=== PATIENT | female | born 1965 | race Caucasian/White ===

== ENCOUNTER 2021-11-08 12:55 | Inpatient (IN) | payer MEDICARE, BC ==
[~2021-11-08] VITALS: Ht 175.3 cm; Wt 75.6 kg
[2021-11-08] MEDS ORDERED: mag hydrox/Alum hydrox/simeth 30ml oral suspension PO PRN (17:05)
[2021-11-08] MEDS ORDERED: acetaminophen 325mg tablet PO PRN ×2 (17:05)
[2021-11-08] MEDS ORDERED: loperamide 2mg capsule PO PRN (17:05)
[2021-11-08] MEDS ORDERED: magnesium hydroxide 30ml (MOM) UD suspension PO PRN (17:05)
[2021-11-08] MEDS ORDERED: NICOTINE POLACRILEX 2 MG LOZENGE BC PRN (17:05)
[2021-11-08 17:28] VITALS: BP 130/89
[2021-11-08] MEDS ORDERED: BUPR300T86 PO (17:34)
--- NOTE | 2021-11-08 17:55 | NUR ---
Pt is a 56 y/o female admitted on a 5150 for DTS from [facility]. Arrived at [facility] at 1635, escorted by security and NA in a wheelchair. She reportedly ingested approximately 12,000 mg Ibuprofen and 4250 mg of Topamax (husbands medication). She was asymptomatic except for some confusion. She reports that she has had previous suicide attempts via overdose and has a history of psychiatric hospitalizations. Skin and safety check completed and oriented to unit. Belongings inventoried. Pt advised of 5150 status Covid: negative Tox screen positive THC
[2021-11-08 20:00] VITALS: BP 113/78
[2021-11-08] MEDS: BUPROPRION 150 MG PO SCH (20:46)
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
[2021-11-09] MEDS ORDERED: nicotine 21mg patch - 24 hr TD SCH (08:00)
[2021-11-09 08:02] LABS: CHOL/HDL RATIO 4.2 (0.00-4.99); CHOLESTEROL 176 MG/DL (0-200); HDL CHOLESTEROL 42 MG/DL (35-60); LDL CHOLESTEROL 100 MG/DL (50-100); TRIGLYCERIDES 94 MG/DL (20-135)
[2021-11-09] MEDS: BUPROPRION 150 MG PO SCH ×2 (08:24→20:39)
[2021-11-09 08:30] LABS: HEMOGLOBIN A1C 5.2 % (4.5-6.2)
[2021-11-09 08:45] VITALS: BP 104/60
--- NOTE | 2021-11-09 17:12 | NUR ---
Nursing Progress Note: Problem: 56 year old female admitted to [facility] for Danger to Self on a 5150 for Attempted Overdose. Patient was transferred from [facility] yesterday 11/08. Intervention: Patient Assessment and 1:1 Patient Interview completed today. Provider continues to provide patient with a safe and therapeutic environment, clear communication, active listening and positive encouragement. Response: Patient received while at breakfast in the Community Room. Introduced self to the patient, and she replied I told them I am on a Gluten Diet yesterday when I was admitted, but I still got a Regular Diet. Patient got up from the table without eating anything, and started to leave the Community Room. I informed the patient that I will interview her now, and send the information to Dietary. Patient informed me of the food items of foods she can eat on a Gluten Free Diet, and the list was faxed to Dietary. Patient took medications without hesitation. Patient returned to her room and laid down for a nap, then requested that I call her , Rodrigo at [phone]. Patient requested that I call her and ask him to bring in her phone so that she can retrieve specific phone numbers off her phone, her purse, and the keys to her car. Informed the patient that I would call her and request the above items, then we would collect these items from her to return to the safe until her departure from [facility]. TC placed to patients , who stated he would bring in the items she requested sometime today. Informed the patient that her stated it might be a bit longer to bring in her car keys to her, as he would need a ride home from the hospital. Informed the patient her would bring in her items, and asked her to respond to her whether or not she would need her personal car here. Patient received her gluten free lunch with items requested, and stated It was good. Patient participated in snacks at 1100 & 1500. Patient took medications without hesitation. Patient disclosed I only started on my medication today, but Im feeling better just being out of the home. Patient informed that she would be filing for a divorce, because I lost a lot of money, a lot of time with my family, it impacted my job and thats the reason I no longer want to be living at this time. Informed patient the most important part is that she focus on improvement, attend Group Meetings, and if/when she would like to talk to her Churner to let one of us know and we will get them for her, and she can speak privately to them. Plan: Patient continues to require crisis interruption and stabilization with medication management and monitoring in a safe & therapeutic environment.
[2021-11-09 19:59] VITALS: BP 108/69
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
[2021-11-10] MEDS: BUPROPRION 150 MG PO SCH (07:40)
[2021-11-10 08:00] VITALS: BP 116/67
[2021-11-10] MEDS ORDERED: hydrOXYzine 25 MG tablet PO ONE (08:55)
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
[2021-11-10] MEDS ORDERED: hydrOXYzine 25 MG tablet PO PRN (17:10)
[2021-11-10 19:40] VITALS: BP 111/89
--- NOTE | 2021-11-11 02:23 | NUR ---
Nursing Progress Note: Problem: 56 year old female admitted to [facility] for Danger to Self on a 5150 for Attempted Overdose. Patient was transferred from [facility], 11/08. Intervention: Patient Assessment and 1:1 Patient Interview completed today. Provided a safe and therapeutic environment, clear communication, active listening and positive encouragement. Q15 min safety checks. Response: Pt up on unit made phone calls. Unhappy with new roommate so moved to a different room. Pt cooperative with care took all medications and went to sleep. Plan: Patient continues to require crisis interruption and stabilization with medication management and monitoring in a safe & therapeutic environment.
[2021-11-11 08:00] VITALS: BP 116/89
[2021-11-11] MEDS: buPROPion SR 150mg tablet PO SCH ×2 (08:28→13:42)
--- NOTE | 2021-11-11 17:13 | NUR ---
Nursing Progress Note: Problem: Patient was transferred to [facility] from [facility] on 11/08/21. Patient is on a 5150 for Danger to Self. Intervention: Patient Assessment and 1:1 Patient Interview completed today. Provider continues to provide nursing care to the patient in a safe and therapeutic environment with clear communication, active listening and positive encouragement. Patient took all medications without hesitancy. Patient reports My head is becoming a lot clearer now from the medications I am taking, and no stress here in this place. Patient had multiple complaints related to staff members, and her gluten-free diet. Looked at patients breakfast tray this morning while she was eating. The meal included a lot of fresh strawberries and pineapple, 2 hard-boiled eggs, one piece of bread, as well as soy milk. Dr. Salinas asked about the patients diet slip stating Allergic to Gluten and Lactose. Reviewed with the patient that we cannot enter the gluten diet into our computers, and so they listed as Allergies the Gluten and Lactose. Patient also informed that she spoke to her last evening. We decided to calmly go through this divorce without any one upset or taking things that do not belong to the other. Response: Patients issues with night nurse staffing was resolved. Patient appreciated being moved out of Room 331B to 327A. Patient stated she slept much better after being relocated. Encouraged patient to communicate any concerns she might have to her Nurse or the Charge Nurse. Encouraged patient to speak with the Repairer [employer] tomorrow when they return from their holiday weekend. Plan: Patient is currently on a [address] scheduled for today at 11/11/21 at 1635. Patient continues to require crisis interruption and stabilization with medication management and monitoring in a safe & therapeutic environment.
[2021-11-11 19:30] VITALS: BP 122/75
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
[2021-11-12] MEDS: buPROPion SR 150mg tablet PO SCH ×2 (07:17→14:56)
--- NOTE | 2021-11-12 07:30 | NUR ---
Initial: Pt admitted w/ suicidal ideations w/ overdose per EMR. Currently on Regular/gluten free diet w/ 100% intake of meals meeting needs at this time. [facility] 11/10 w/ PRN bowel care available. No nutrition intervention implemented at this time, will continue to monitor. Recs: 1.Continue Regular diet as tolerated 2. Bowel care PRN 3. Weekly wts Addendum: 11/12/21 at [address] Amended: Links added.
[2021-11-12 08:00] VITALS: BP 110/87
--- NOTE | 2021-11-12 11:19 | NUR ---
Nursing Progress Note: Jess Problem: Patient reportedly ingested approximately 12,000 mg Ibuprofen and 4250 mg of Topamax (husbands medication). She was asymptomatic except for some confusion. She reports that she has had previous suicide attempts via overdose and has a history of psychiatric hospitalizations. Intervention: Medication administered as ordered. Provided with a safe and therapeutic environment, clear communication, active listening and positive encouragement. Response: Patient spends a lot of time on the phone. Denies SI at this time. States, I was never really suicidal. Im just scared. Patient describes her as having epilepsy which has made him more angry. Patient states this is her 3rd suicide attempt which she attributes to being scared of her . States she is scared to go home and is trying to decide where to go from here. She is tearful when talking about from her of 30 years but she states, Its time. Medication administered as ordered. Patient states she thinks it makes her dizzy. Also states that she does not need medications when she is well and only takes them when she is down. Plan: Patient continues to require crisis interruption and stabilization with medication management and monitoring in a safe and therapeutic environment.
[2021-11-12 19:51] VITALS: BP 119/84
[2021-11-12] MEDS: hydrOXYzine 25 MG tablet PO PRN (23:15)
--- NOTE | 2021-11-12 23:18 | NUR ---
Nursing Progress Note: Problem: Patient reportedly ingested approximately 12,000 mg Ibuprofen and 4250 mg of Topamax (husbands medication). She was asymptomatic except for some confusion. She reports that she has had previous suicide attempts via overdose and has a history of psychiatric hospitalizations. Intervention: Medication administered as ordered. Provided with a safe and therapeutic environment, clear communication, active listening and positive encouragement. Response: Patient in rec room at change of shift. Pt denies s/i, states she is here for taking an over dose. Pt states while she has been working 6 days a week he was cheating on her and she wants to leave him. She is tearful when talking about from her . Pt had evening snack and socialized with peers and went to bed. Pt woke up c/o noise in her room. States she cant sleep and is tearful. Pt was given earplugs and prn ativan for anxiety. Pt went back to bed. Plan: Patient continues to require crisis interruption and stabilization with medication management and monitoring in a safe and therapeutic environment.
[2021-11-13] MEDS: buPROPion SR 150mg tablet PO SCH ×2 (07:16→13:05)
[2021-11-13 07:20] VITALS: BP 109/70
[2021-11-13 09:03] LABS: UA COLLECTION TYPE NON-SPECIFIED
[2021-11-13 09:05] LABS: CLARITY,URINE SLIGHTLY CLOUDY (Clear); COLOR,URINE YELLOW (Yellow); GLUCOSE, URINE NEGATIVE (Neg); KETONES,URINE NEGATIVE (Neg); LEUKOCYTE ESTERASE ,URINE SMALL (Neg); NITRITES, URINE POSITIVE (Neg); OCCULT BLOOD,URINE TRACE-INTACT (Neg); PROTEIN,URINE NEGATIVE (Neg); UROBILINOGEN,URINE 0.2 E.U/dL (0.2-1.0)
[2021-11-13 09:19] LABS: BACTERIA,URINE 2+ /HPF (Neg); RBC,URINE 0-2 /HPF (0-2)
[2021-11-13 09:20] LABS: SQUAMOUS EPITHELIAL CELL,UR FEW /LPF (FEW)
--- NOTE | 2021-11-13 13:47 | NUR ---
Pt. attended group today. The group today was about Anxiety, they were asked to identify the natural and silent triggers they have experienced. The second half of group was about what coping skills we can utilize when we are anxious. Pt. engaged appropriately in the group today. She was alert and oriented X 4. Her thought content and thought process were WNL. She easily shared about what her symptoms of anxiety are. She showed insight into her mental illness. She was very engaging with her peers, listening and attuning to what they shared and encouraging others. She appeared to enjoy socializing with the group members. She seemed to have already built some connections with others in the group. Her mood was good with a full range of affect. Her demeanor was calm, compliant and pleasant to work with. Suyapa Toro LCSW
--- NOTE | 2021-11-13 16:39 | NUR ---
Nursing Progress Note: Jess Problem: Patient reportedly ingested approximately 12,000 mg Ibuprofen and 4250 mg of Topamax (husbands medication). She was asymptomatic except for some confusion. She reports that she has had previous suicide attempts via overdose and has a history of psychiatric hospitalizations. Intervention: Medication administered as ordered. Provided with a safe and therapeutic environment, clear communication, active listening and positive encouragement. Response: Medication given as ordered with no ASE observed. Patient is tearful during assessment. Denies any SI at this time. States, I was never really suicidal. I was in fear. Patient appears paranoid stating that The system did this to her also stating that the system uses family to get to you. Patient spends time socializing on the unit and interacts appropriately with staff and peers. Patient talks on the phone several times. Patient states she is afraid to return home to her and is not sure where she is going to live upon discharge. States she may go to live with her sister in [place]. Plan: Patient continues to require crisis interruption and stabilization with medication management and monitoring in a safe and therapeutic environment.
[2021-11-13 19:41] VITALS: BP 107/73
[2021-11-13] MEDS: ciprofloxacin 250mg tablet PO SCH (19:42)
--- NOTE | 2021-11-13 20:54 | NUR ---
Nursing Progress Note: Jess Problem: Patient reportedly ingested approximately 12,000 mg Ibuprofen and 4250 mg of Topamax (husbands medication). She was asymptomatic except for some confusion. She reports that she has had previous suicide attempts via overdose and has a history of psychiatric hospitalizations. Intervention: Medication administered as ordered. Provided with a safe and therapeutic environment, clear communication, active listening and positive encouragement. Response: Pt is in bed at change of shift resting. Pt smiles and appears to have a brightened affect from yesterday. Pt is glad to be starting Cipro for UTI she states. Pt denies s/i. Pt if future oriented talks about possibility of moving in w/her sister, fearful of and doesnt want to return home to him. Plan: Patient continues to require crisis interruption and stabilization with medication management and monitoring in a safe and therapeutic environment.
[2021-11-14 07:39] VITALS: BP 116/80
[2021-11-14] MEDS: buPROPion SR 150mg tablet PO SCH ×2 (08:05→13:11)
[2021-11-14] MEDS: ciprofloxacin 250mg tablet PO SCH ×2 (08:05→20:07)
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
[2021-11-14] MEDS: hydrOXYzine 25 MG tablet PO PRN (19:03)
--- NOTE | 2021-11-15 05:00 | NUR ---
Nursing Progress Note: Jess Problem: Patient reportedly ingested approximately 12,000 mg Ibuprofen and 4250 mg of Topamax (husbands medication). She was asymptomatic except for some confusion. She reports that she has had previous suicide attempts via overdose and has a history of psychiatric hospitalizations. Intervention: Medication administered as ordered. Provided with a safe and therapeutic environment, clear communication, active listening and positive encouragement. Response: Patient was found sitting in community room at beginning of shift. Patient stayed in community room socializing and coloring the majority of the shift. Patient participated in snack time and was observed talking on the phone to family members while pacing the all. Patient came to nurse and asked if she could have medications given early due to her wanting to go to sleep before her roommate since she kept her up all last night. Patient took medications without issue along with requested Atrax for anxiety. Plan: Patient continues to require crisis interruption and stabilization with medication management and monitoring in a safe and therapeutic environment.
[2021-11-15 08:00] VITALS: BP 127/88
[2021-11-15] MEDS: buPROPion SR 150mg tablet PO SCH ×2 (09:00→13:39)
[2021-11-15] MEDS: ciprofloxacin 250mg tablet PO SCH ×2 (09:00→20:32)
[2021-11-15] MEDS: duloxetine 30mg CAPSULE.DR PO SCH (09:19)
[2021-11-15] MEDS: hydrOXYzine 25 MG tablet PO PRN (13:42)
--- NOTE | 2021-11-15 13:43 | NUR ---
PRNs Administered: Pt was on the telephone and requested a PRN anxiolytic, Atarax 50mg was administered. Interventions Offered: Pt. was provided a quiet environment, free from stimulation. Response to Medication: Pt. accepted medication and thanked this medical technical writer, will continue to monitor closely.
--- NOTE | 2021-11-15 14:48 | NUR ---
Nursing Progress Note: Problem : Patient reportedly ingested approximately 12,000 mg Ibuprofen and 4250 mg of Topamax (husbands medication). She was asymptomatic except for some confusion. She reports that she has had previous suicide attempts via overdose and has a history of psychiatric hospitalizations. This shift the pt. reports ongoing depression and anxiety, but denies any S/I. Interventions : Introduced self and established rapport, maintained a safe and supportive environment, ensured contract for safety, provided active listening and positive encouragement, monitored behaviors and need for intervention, and maintained Q 15min safety checks. Response : Received pt. sleeping in bed at the beginning of the shift, she awoke and attended breakfast in the Group Room. This blurb writer greeted pt. and established rapport. Pt. presents as cooperative, dysphoric, and anxious. She states tearfully, "I'm going through a divorce, and it's an emotional roller coaster." Pt. reports ongoing depression, but denies any S/I. She appears to be possibly minimizing, and states, "I never felt suicidal in the first place, it was just fear. My has seizures and I don't think he wanted me to leave because he needs help." However, pt. does report she has has plans for her future and plans to take classes and pursue her interests. Pt. remained up throughout the day and was observed to be appropriately interacting with others. Plan : Per Dr. Salinas, pt. continues to have significant depressive s/s and requires medication adjustments and a safe and supportive environment.
[2021-11-15 19:00] VITALS: BP 138/83
--- NOTE | 2021-11-16 04:52 | NUR ---
Nursing Progress Note: Problem : Patient reportedly ingested approximately 12,000 mg Ibuprofen and 4250 mg of Topamax (husbands medication). She was asymptomatic except for some confusion. She reports that she has had previous suicide attempts via overdose and has a history of psychiatric hospitalizations. Interventions : Introduced self and established rapport, maintained a safe and supportive environment, ensured contract for safety, provided active listening and positive encouragement, monitored behaviors and need for intervention, and maintained Q 15min safety checks. Response : Patient was received pacing hallways talking on the phone. Patient later was found sitting in community room socializing with other patients. Patient stated that she was feeling off today, patient had a lot on her mind and some things she feels she really needs to work out before she leaves here. Patient participated in snack and took night medications before going to bed. . Plan : Per Dr. Salinas, pt. continues to have significant depressive s/s and requires medication adjustments and a safe and supportive environment.
[2021-11-16] MEDS: buPROPion SR 150mg tablet PO SCH ×2 (07:36→14:30)
[2021-11-16] MEDS: duloxetine 30mg CAPSULE.DR PO SCH (07:36)
[2021-11-16] MEDS: ciprofloxacin 250mg tablet PO SCH (08:00)
[2021-11-16 08:28] VITALS: BP 127/76
[2021-11-16 13:12] LABS: BASOPHILS # (AUTO) 0.1 X10'3 (0-0.2); BASOPHILS % (AUTO) 0.8 % (0-1); EOSINOPHILS # (AUTO) 0.1 X10'3 (0-0.9); HEMATOCRIT 41.5 % (35.0-45.0); HEMOGLOBIN 13.9 g/dl (12.0-16.0); LYMPHOCYTES # (AUTO) 1.5 X10'3 (1.1-4.8); LYMPHOCYTES % (AUTO) 17.7 % (21-51); MEAN CORPUSCULAR HEMOGLOBIN 30.5 PG (27.0-31.0); MEAN CORPUSCULAR HGB CONC 33.6 g/dL (33.0-36.5); MEAN CORPUSCULAR VOLUME 90.9 FL (78-98); MEAN PLATELET VOLUME 8.6 FL (7.4-10.4); MONOCYTES # (AUTO) 0.5 X10'3 (0-0.9); MONOCYTES % (AUTO) 6.3 % (2-12); NEUTROPHILS # (AUTO) 6.4 X10'3 (1.8-7.7); NEUTROPHILS % (AUTO) 74.2 % (42-75); PLATELET COUNT 303 X10'3 (140-440); RED BLOOD COUNT 4.56 X10'6 (4.20-5.60); RED CELL DISTRIBUTION WIDTH 14.1 % (11.5-14.5); WHITE BLOOD COUNT 8.6 X10'3 (4.5-11.0)
[2021-11-16 13:14] LABS: ALANINE AMINOTRANSFERASE 27 U/L (12-78); ALBUMIN 4.1 G/DL (3.4-5.0); ALKALINE PHOSPHATASE 85 IU/L (46-116); ANION GAP 8 (8-16); ASPARTATE AMINO TRANSFERASE 18 U/L (10-37); BILIRUBIN,TOTAL 0.3 MG/DL (0.1-1.0); BLOOD UREA NITROGEN 9 MG/DL (7-18); BUN/CREATININE RATIO 10.1 (6.6-38.0); CALCIUM 9.3 MG/DL (8.5-10.1); CHLORIDE 103 MMOL/L (99-107); CREATININE 0.89 MG/DL (0.40-0.90); GLUCOSE 93 MG/DL (70-104); MAGNESIUM 1.9 MG/DL (1.5-2.4); POTASSIUM 3.6 MMOL/L (3.5-5.1); SODIUM 140 MMOL/L (135-145); TOTAL PROTEIN 8.2 G/DL (6.4-8.2); eGFR 65 ML/MIN
--- NOTE | 2021-11-16 17:04 | NUR ---
Nursing Progress Note: Problem: Patient admitted on 11/09/21 after she ingested approximately 12,000 mg Ibuprofen and 4250 mg of Topamax (husbands medication). She was asymptomatic except for some confusion. She reports that she has had previous suicide attempts via overdose and has a history of psychiatric hospitalizations. Interventions: Patient assessment and 1:1 Patient Interview completed. Patient asked, Do you mind if I ask you if you are Party or Constitution Party? Informed the patient I was not willing to disclose to her the constitution party that I am affiliated with. Patient continued on by saying Well, I can tell that this hospital, and Dr. Salinas are all Democrats, because they hang on to their money, and wont spend it on any of us patients. Asked patient what she meant, and she informed If they were [employer] Party, they would have paid for my ticket to [place] where my sister is, but with the way they are hanging onto their money, and telling me I can only go to a place in [facility]. Patient took all ordered medications without hesitation. No Group Meeting held today. Patient resting in bed after lunch. Patient also spent quite a bit of time talking to someone on the phone. Response: Patient is extremely paranoid about her medications, her physician and staff members who are caring for her each day. Patient stated I just want to walk away from this mess. Reinforced to the patient that each one of us working here in this department are trying to help her clear her mentation, as well improve her depression. Dr. Salinas is attempting to adjust your medications so that you receive the optimum improvement overall in helping with your depression, as well as with any other issues that you have spoken to him about since your admission. Patient also reports that her and her will be Sharing the same litigation attorney associate to file for our divorce. Plan: Patient continues to require crisis interruption and stabilization with medication management and monitoring in a safe and therapeutic environment.
[2021-11-16 20:00] VITALS: BP 141/94
--- NOTE | 2021-11-17 03:25 | NUR ---
Nursing Progress Note: Problem : Patient reportedly ingested approximately 12,000 mg Ibuprofen and 4250 mg of Topamax (husbands medication). She was asymptomatic except for some confusion. She reports that she has had previous suicide attempts via overdose and has a history of psychiatric hospitalizations. Interventions : maintained a safe and supportive environment, ensured contract for safety, provided active listening and positive encouragement, monitored behaviors and need for intervention, and maintained Q 15min safety checks. Response : Patient was visible on the unit, appropriately interacting with staff and peers. PT expresses concern that she feels the antibiotic she was being given was not actually meant for her, but was confused with another patient. Pt was reassured that this was not the case, and reminded that she was on antibiotics, which ended today, for a UTI. PT verbalized understanding. Pt has no scheduled HS medications. She eats snack and goes to bed without issue. Plan : Per Dr. Salinas, pt. continues to have significant depressive s/s and requires medication adjustments and a safe and supportive environment.
[2021-11-17 07:14] VITALS: BP 126/74
[2021-11-17] MEDS: duloxetine 30mg CAPSULE.DR PO SCH (07:46)
[2021-11-17] MEDS: buPROPion SR 150mg tablet PO SCH ×2 (07:46→13:20)
--- NOTE | 2021-11-17 17:33 | NUR ---
Nursing Progress Note: Problem: Patient admitted on 11/09/21 after she ingested approximately 12,000 mg Ibuprofen and 4250 mg of Topamax (husbands medication). She was asymptomatic except for some confusion. She reports that she has had previous suicide attempts via overdose and has a history of psychiatric hospitalizations. Interventions: Patient assessment and 1:1 Patient Interview completed. Administered medications and spoke to the patient regarding any concerns. Patient has eaten her meals in the Community Room and has participated in snack times. Patient appears bored at times, so I encouraged some activities that included the coloring of large print pictures in the Community Room, watching TV or visiting with peers. Patient has been reading a book today in the Community Room and her room. Response: Patient is extremely paranoid about where she will be going when she leaves here, her family connections, and peers in the facility. Patient has continued to make statements again asking if particular staff members are Constitution Party or Republican. Patient has self-isolated part of the day in her room. Plan: Patient continues to require crisis interruption and stabilization with medication management and monitoring in a safe and therapeutic environment.
[2021-11-17] MEDS: hydrOXYzine 25 MG tablet PO PRN (20:26)
[2021-11-17 21:07] VITALS: BP 127/81
--- NOTE | 2021-11-18 02:17 | NUR ---
Nursing Progress Note: Problem : Patient reportedly ingested approximately 12,000 mg Ibuprofen and 4250 mg of Topamax (husbands medication). She was asymptomatic except for some confusion. She reports that she has had previous suicide attempts via overdose and has a history of psychiatric hospitalizations. Interventions : Maintained a safe and supportive environment, ensured contract for safety, provided active listening and positive encouragement, monitored behaviors and need for intervention, and maintained Q 15min safety checks. Response : Patient seen at bedside for 1:1. She reports that she's making progress. "I'm close to discharging, but waiting to see if my sister will have me. I can't go back home." Patient then states that she believes the Wellbutrin she is taking makes her feel a little wired and hard to sleep. Patient wanted to make sure she could get some of "those green pills (Atarax) to help her sleep. Patient went to bed soon after receiving them. Patient has no scheduled medications. Plan : Per Dr. Salinas, pt. continues to have significant depressive s/s and requires medication adjustments and a safe and supportive environment.
[2021-11-18] MEDS: buPROPion SR 150mg tablet PO SCH ×2 (07:39→13:13)
[2021-11-18] MEDS: duloxetine 30mg CAPSULE.DR PO SCH (07:39)
[2021-11-18 08:00] VITALS: BP 130/90
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
--- NOTE | 2021-11-18 09:42 | NUR ---
Pt. attended group today. Todays group was about the difference between Growth Mindset vs. Fixed Mindset. We learned about the differences and then discussed what aspect of developing a growth mindset they wanted to work on. Pt. engaged well in the group. She was able to report that she believes she has a growth mindset. She left half way through the group reporting that she was very tired and needed to lay down. Her mood was down with a restricted affect. Her thought content and thought process were WNL. She was alert and oriented X 4. She seems to feel good about her options for discharge and for leaving her . Suyapa Toro, REVIEW RN
--- NOTE | 2021-11-18 14:52 | NUR ---
DCp Presenting Issues: Pt's ready fro d/c and has been engaging in [facility] activities trying to establish a d/c destination for herself. Pt was to contact [facility] to participate in a screening to see if she meets [facility] criteria for services. Interventions: Clinician met w/pt and f/u on her contact w/[facility]; pt reports that they recommends that pt take a cab to [facility] and complete paperwork to determine her eligibility, pt does not want to go there and then be stuck there if she does not meet criteria. Pt asked to access her cell phone to get friend's contact info and see if her friend will be able to provide prison for a nite and take her to the [facility] on Thursday morning. Pt's changed her mind about going to [place], she wants to go to [place] and can purchase her own ticket, will do so tomorrow morning. If pt's fried cannot provide transport to airport, pt wants to d/c from hospital at 2AM Thursday and will need cab/uber to [facility]. Plan: Pt to d/c sometime this week. Kendra Chapa LCSw Addendum: 11/18/21 at 1500 by Kendra Chapa SS Amended: Links added.
--- NOTE | 2021-11-18 17:45 | NUR ---
Nursing Progress Note: Problem: Patient admitted on 11/09/21 after she ingested approximately 12,000 mg Ibuprofen and 4250 mg of Topamax (husbands medication). She was asymptomatic except for some confusion. She reports that she has had previous suicide attempts via overdose and has a history of psychiatric hospitalizations. Interventions: Patient assessment and 1:1 Patient Interview completed. Patient took her morning medications. Patient was up early and ambulating in the hallway. Patient showered this morning. Patient requested to speak with ELHAM Gardner. Kendra arrived bedside to speak with this patient about some legal changes. Response: Patient took her morning medications without hesitation. Patient ate both meals in the Community Room, and participated in the snack session. Patient showered and walked in the hallway throughout the day. Patient participated in Group and then after lunch laid down and was reading a book. Plan: Patient should be discharged tomorrow and will be picked up by a friend, Kailey, who will take her to the [place] [facility] to board a plan. Please follow up on Tonia hallman tonight. Patient continues to require crisis interruption and stabilization with medication management and monitoring in a s
[2021-11-18] MEDS: hydrOXYzine 25 MG tablet PO PRN (18:55)
[2021-11-18 20:00] VITALS: BP 123/84
--- NOTE | 2021-11-19 00:07 | NUR ---
Nursing Progress Note: Problem : Patient reportedly ingested approximately 12,000 mg Ibuprofen and 4250 mg of Topamax (husbands medication). She was asymptomatic except for some confusion. She reports that she has had previous suicide attempts via overdose and has a history of psychiatric hospitalizations. Interventions : Maintained a safe and supportive environment, ensured contract for safety, provided active listening and positive encouragement, monitored behaviors and need for intervention, and maintained Q 15min safety checks. Response : Patient was sitting in the group room. 1:1 happened there. She reports that she is planning on going to [place]. Patient needs help to secure her belongings from her house and her car. She needs her daughters help because she fears going back to her house. Her discharge is imminent, but she needs to firm up her plans. Patient worries that if this doesn't happen soon, she could have a relapse. Patient requested Atarax for anxiety and sleep, which was effective aeb her asleep. Plan : Per Dr. Salinas, pt. continues to have significant depressive s/s and requires medication adjustments and a safe and supportive environment.
[2021-11-19] MEDS: buPROPion SR 150mg tablet PO SCH (07:31)
[2021-11-19] MEDS: duloxetine 30mg CAPSULE.DR PO SCH (07:31)
[2021-11-19 08:00] VITALS: BP 131/75
[2021-11-19] MEDS ORDERED: DULO30CA52 PO (09:32)
[2021-11-19] MEDS ORDERED: BUPR-72 PO (09:32)
[2021-11-19] MEDS ORDERED: HYDR-3686 PO (09:32)
--- NOTE | 2021-11-19 11:05 | NUR ---
DISCHARGE NOTE PT PICKED UP BY A FRIEND THAT WILL DRIVE HER TO [place] SO SHE CAN FLY TO FAMILY MEMBERS IN [place]. PT DECLINED SMOKING CESSATION REFERRAL OR MEDICATIONS. PT'S BELONGINGS INVENTORIED, SIGNED AND BELONGINGS RETURNED TO HER. PT ESCORTED OUT BY [employer]TAIN[employer].
== END 2021-11-19 11:05 | disposition home or self-care (01) | DRG 885 ==
LOC: ADULT MH 12:55 → UNDOADMIN 12:55 → ADULT MH 11-12 12:05
PROVIDERS: ADMIT Psychiatry & Neurology Psychiatry; ATTEND Psychiatry & Neurology Psychiatry
DX: F33.2 Major depressive disorder, recurrent severe without psychotic features (principal); T42.6X2A Poisoning by other antiepileptic and sedative-hypnotic drugs, intentional self-harm, initial encounter; R45.851 Suicidal ideations; T39.312A Poisoning by propionic acid derivatives, intentional self-harm, initial encounter; F17.210 Nicotine dependence, cigarettes, uncomplicated; K90.0 Celiac disease; F12.10 Cannabis abuse, uncomplicated; R06.02 Shortness of breath; F41.9 Anxiety disorder, unspecified; F43.10 Post-traumatic stress disorder, unspecified; L40.9 Psoriasis, unspecified; Y92.89 Other specified places as the place of occurrence of the external cause; Z79.899 Other long term (current) drug therapy; Z81.8 Family history of other mental and behavioral disorders; Z88.0 Allergy status to penicillin; Z90.710 Acquired absence of both cervix and uterus; Z91.51 Personal history of suicidal behavior; Z88.8 Allergy status to other drugs, medicaments and biological substances; Z88.2 Allergy status to sulfonamides; Z71.6 Tobacco abuse counseling
CPT/HCPCS: 36415; 80053; 80061; 81001; 83036; 83735; 85025; 87077; 87081; 87088; 87186; Q0177

== ENCOUNTER 2025-02-13 17:40 | Emergency (ER) | payer BC, MEDICARE ==
[~2025-02-13] VITALS: Ht 175.3 cm; Wt 72.0 kg
[~2025-02-13 17:40] MED LIST: BUPR-72 PO; DULO30CA52 PO; HYDR-3686 PO
[2025-02-13 17:42] VITALS: BP 147/100; PULSE 93; RESP 16; TEMP 97.5; O2SAT 97
--- NOTE | 2025-02-13 18:18 | Physician Documentation ---
History of Present Illness ~ Chief Complaint: Mental Health Eval Stated Complaint: MED REQUEST HPI This is a 59-year-old female who presents without a clear stated chief concern, patient makes several comments about history of allergies and being on a medication that has prescribed by Dr. Salinas, patient requests 10 of whatever medicine that was , but is unable to specify what medication she is requesting, patient is reporting no physical symptoms currently, patient reports maybe something with my digestion because I have dairy allergies. When questioned patient reports no abdominal pain. Patient repeatedly question what her physical symptoms are with no answer to the question, only reporting I told the nurse I have allergies. Medication Reconciliation Allergies: Coded Allergies: lactose (Verified Allergy, Mild, cramping, 11/08/21) Penicillins (Verified Allergy, Unknown, 11/08/21) gluten (Verified Allergy, Unknown, 11/08/21) Discontinued Medications Bupropion HCl (Bupropion HCl Sr), 150 MG PO BID@0800,1400 Discontinued Reason: patient no longer taking Duloxetine HCl (Duloxetine HCl), 30 MG PO DAILY Discontinued Reason: patient no longer taking Hydroxyzine Hcl* (Atarax*), 25 MG PO TID PRN for anxiety Discontinued Reason: patient no longer taking Past Medical History Past Medical History: *PSYCH* Review of Systems ROS As stated above in the HPI, otherwise all systems are reviewed and negative. Physical Exam Vital Signs: Temperature: 97.5, Source: Temporal, Heart Rate: 93, Respiratory Rate: 16, BP: 147/100, Pulse Oximetry: 97, Weight: 72.000 Oxygen Flow Rate: 0 Physical Exam VITALS: Reviewed and as above. GENERAL: Alert, nontoxic appearing, no apparent distress. RESPIRATORY: No increased work of breathing, no respiratory distress, speaking in full clear sentences NEURO: GCS 15 PSYCH: Stating no SI or HI, Progress Results/Orders Results/Orders Vital Signs 02/13/25 17:42 Temp 97.5 Pulse 93 Resp 16 B/P (MAP) 147/100 Pulse Ox 97 O2 Flow Rate 0 Medical Decision Making Findings 59-year-old female presented with no specific chief complaint, it is reassuring patient is not sitting HI or SI though patient is reporting no symptoms at all avoiding question of what her symptoms are. Patient reported that she told the triage nurse what her symptoms were though in discussion with the triage nurse there were no symptoms reported and only patient requesting a medication that she has been on though unable to specify what medication, additionally patient reported allergies however reports them as dairy allergies and is reporting no physical symptoms currently. Patient reports is not able to articulate any medical need and appears alert and oriented x4 without slurred speech, focal neuro deficits, or obvious confusion. Patient is otherwise well-appearing and appropriate follow up with primary care provider and or primary mental health provider. Differential Dx:Considerations: Include: Alcohol abuse, Anxiety, Bipolar disorder, Conversion disorder, Depression, Homicidal, Panic disorder, Personality disorder, Schizophrenia, Substance abuse, Suicidal, Other (Alcohol intoxication, drug intoxication) Departure Time of Disposition: 18:25 Disposition: HOME / SELF CARE / HOMELESS Impression: Primary Impression: Mental disorder Condition: Stable Discharge Instructions: Medical Screening Exam Additional Instructions: As you are unable to provide a concern for being in the emergency department and you appear otherwise well I do not believe you have an acute medical emergency which requires attention in the emergency department, I would be happy to discuss refilling her prescriptions however you are unable to articulate what medication you need and the reason you would need it, if you change your mind on discussing this medication please return to the emergency department. As far as allergies I recommend following up with your primary care provider, who you may also discuss refill of prescriptions with. Please follow up with your primary c are provider in the next few days. Please return to the emergency department for any new or worsening concerning symptoms. Referrals: NO PRIMARY CARE PROVIDER (PCP) Education Educated: Patient Educated regarding: diagnosis, treatment, prognosis, need for follow up Signature Scribe Signature: No scribe Attestation: The note accurately reflects work and decisions made by me.MONICA Fernandez 02/15/25 17:02 SEJAL CORONA Feb 13, 2025 18:18
== END 2025-02-13 18:42 | disposition left against medical advice (07) ==
LOC: ER 17:41
DX: F99 Mental disorder, not otherwise specified (principal); Z88.0 Allergy status to penicillin
CPT/HCPCS: 99281; 99282

== ENCOUNTER 2025-02-14 10:34 | Emergency (ER) | payer MEDICARE ==
[~2025-02-14] VITALS: Ht 175.3 cm; Wt 74.2 kg
--- NOTE | 2025-02-14 10:54 | Physician Documentation ---
History of Present Illness ~ Chief Complaint: Mental Health Eval Stated Complaint: MH Time Seen by MD: 10:36 HPI 59-year-old female presents stating she needs to be evaluated mentally. She presents with a sign on her chest with various elements of scripture, hanging from her neck. States she has a a history of bipolar depression and anxiety and his not been medicated for years. She does report occasional use of marijuana and alcohol. She denies any SI or HI. She does present somewhat agitated, but is consolable Denies any urinary symptoms. Day of Onset: Feb 14, 2025 Medication Reconciliation Allergies: Coded Allergies: lactose (Verified Allergy, Mild, cramping, 11/08/21) Penicillins (Verified Allergy, Unknown, 11/08/21) gluten (Verified Allergy, Unknown, 11/08/21) Discontinued Medications Bupropion HCl (Bupropion HCl Sr), 150 MG PO BID@0800,1400 Discontinued Reason: patient no longer taking Duloxetine HCl (Duloxetine HCl), 30 MG PO DAILY Discontinued Reason: patient no longer taking Hydroxyzine Hcl* (Atarax*), 25 MG PO TID PRN for anxiety Discontinued Reason: patient no longer taking Past Medical History Past Medical History: *PSYCH* Review of Systems All Other Systems at this time: Reviewed and Negative ROS As stated above in the HPI, otherwise all systems are reviewed and negative. Physical Exam Vital Signs: Temperature: 96.6, Source: Oral, Heart Rate: 109, Respiratory Rate: 18, BP: 145/91, Pulse Oximetry: 99, Weight: 74.200 Physical Exam General: Alert, no apparent distress. Respiratory: Lungs clear, no respiratory distress. Chest: No accessory muscle use. Cardiovascular: Regular rate and rhythm, no murmurs. Gastrointestinal: Soft, nontender, nondistended. Bowels sounds present. Neurologic: Oriented x4. Psychiatric: Normal mood and affect. anxious appearing Skin: Normal color, warm and dry. No edema, no ecchymosis. Progress Results/Orders Reviewed/noted all lab results: Yes Results/Orders Vital Signs 02/14/25 02/14/25 02/14/25 02/14/25 10:42 10:58 18:40 19:48 Temp 96.6 97.8 Pulse 109 82 Resp 18 16 B/P (MAP) 145/91 114/84 (94) Pulse Ox 99 100 9/3/25 05:48 Temp 97.3 Pulse 68 Resp 18 B/P (MAP) 98/72 (81) Pulse Ox 99 Laboratory Tests Test 02/14/25 11:21 02/14/25 11:25 02/14/25 11:29 White Blood Count 12.0 H Red Blood Count 4.22 Hemoglobin 12.9 Hematocrit 38.1 Mean Corpuscular Volume 90.1 Mean Corpuscular Hemoglobin 30.5 Mean Corpuscular Hemoglobin Concent 33.9 Red Cell Distribution Width 14.4 Platelet Count 312 Mean Platelet Volume 7.5 Neutrophils (%) (Auto) 71.6 Lymphocytes (%) (Auto) 21.6 Monocytes (%) (Auto) 4.7 Eosinophils (%) (Auto) 1.6 Basophils (%) (Auto) 0.5 Neutrophils # (Auto) 8.6 H Lymphocytes # (Auto) 2.6 Monocytes # (Auto) 0.6 Eosinophils # (Auto) 0.2 Basophils # (Auto) 0.1 CBC Comment Sodium Level 139 Potassium Level 3.5 Chloride Level 104 Carbon Dioxide Level 26.6 Anion Gap 8 Blood Urea Nitrogen 5 L Creatinine 0.57 Estimated GFR/1.73 m2 > 90 BUN/Creatinine Ratio 8.8 L Glucose Level 106 H Calcium Level 9.3 Albumin 3.7 Thyroid Stimulating Hormone (TSH) 1.03 Chemistry Comments Ethyl Alcohol Level < 10 SARS-CoV-2 Antigen (Rapid) Negative Urine Specimen Description Voided Urine Color Straw Urine Clarity Slightly cloudy Urine pH 6.0 Urine Specific [place] <=1.005 Urine Protein Negative Urine Glucose (UA) Negative Urine Ketones Negative Urine Occult Blood Trace-intact Urine Nitrite Positive H Urine Bilirubin Negative Urine Urobilinogen 0.2 Urine Leukocyte Esterase Negative Urine RBC 3-10 Urine WBC 5-10 H Urine WBC Clumps Few Urine Squamous Epithelial Cells Many Urine Transitional Epithelial Cells Moderate Urine Renal Cells Urine Bacteria 4+ Urine Mucus Volume Urine Centrifuged 10 ml Urine HCG, Qualitative Negative Urine Comment Urine Opiates Screen Negative Urine Methadone Screen Negative Urine Fentanyl Screen Negative Urine Barbiturates Screen Negative Urine Phencyclidine Screen Negative Urine Amphetamines Screen Negative Urine Benzodiazepines Screen Negative Urine Cocaine Screen Negative Urine Cannabinoids Screen Positive Drug Screen Comment Medical Decision Making Findings This 59-year-old female became increasingly agitated throughout her stay in the ED. she required multiple doses of antipsychotic, benzodiazepine to and antihistamines to help regulate her agitation. . She was yelling expletives and banging on the doors which required temporary restraints/behavioral. Differential Dx:Considerations: Include: Alcohol abuse, Anxiety, Bipolar disorder, Conversion disorder, Depression, Encephaloathy, Homicidal, Panic disorder, Personality disorder, Schizophrenia, Substance abuse, Suicidal, Other Departure Time of Disposition: 09:12 Disposition: 01 HOME / SELF CARE / HOMELESS Impression: Primary Impression: Mental disorder Additional Impressions: Anxiety Urinary tract infection Condition: Stable Discharge Instructions: Urinary Tract Infection, Adult, [id number] Additional Instructions: Follow up with your regular doctor. Return to the ER for any other concerns. Referrals: NO PRIMARY CARE PROVIDER (PCP) Education Educated: Patient Educated regarding: diagnosis Signature Scribe Signature: f Attestation: Scribed for Jerome Spear Basket Machine Operator by Jerome Figueroa NP . 02/14/25 12:53 Addendum 59-year-old female presented for mental health evaluation. Yesterday patient was given multiple medications for agitation and yelling at staff. She was placed on a 1799 by ER physician. Patient was seen by [facility] this morning who are rescinding the mental health hold. Patient is safe for discharge. The patient was noted to have urinary tract infection. We will give one dose of fosfomycin prior to departure. Scribed for [facility], Her[place] WEI by Jesus Mike . 02/15/25 09:10 JEROME SPEAR NP Feb 14, 2025 10:54 JESUS MARLEY Feb 15, 2025 09:12
[2025-02-14 11:27] LABS: MEAN PLATELET VOLUME 7.5 FL (7.4-10.4); RED CELL DISTRIBUTION WIDTH 14.4 % (11.5-14.5)
[2025-02-14 11:42] LABS: URINE HCG NEGATIVE (NEG)
[2025-02-14 11:44] LABS: LEUKOCYTE ESTERASE ,URINE NEGATIVE (Neg); NITRITES, URINE POSITIVE (Neg); OCCULT BLOOD,URINE TRACE-INTACT (Neg)
[2025-02-14 11:46] LABS: UA COLLECTION TYPE VOIDED
[2025-02-14 11:50] LABS: CREATININE 0.57 MG/DL (0.40-0.90); TOTAL CARBON DIOXIDE 26.6 MMOL/L (24-32); eCRCL 108 ML/MIN; eGFR > 90 ML/MIN
[2025-02-14 11:57] LABS: SQUAMOUS EPITHELIAL CELL,UR MANY /LPF (FEW)
[2025-02-14 11:58] LABS: URINE AMPHETAMINE SCREEN NEGATIVE (Neg); URINE BARBITUATE SCREEN NEGATIVE (Neg); URINE BENZODIAZEPINES SCREEN NEGATIVE (Neg); URINE CANNABINOID SCREEN POSITIVE (Neg); URINE COCAINE SCREEN NEGATIVE (Neg); URINE METHADONE SCREEN NEGATIVE (Neg); URINE OPIATE SCREEN NEGATIVE (Neg); URINE PHENCYCLIDINE SCREEN NEGATIVE (Neg)
[2025-02-14 11:58] LABS: ETHANOL < 10 MG/DL (<10)
[2025-02-14 12:01] LABS: WBC CLUMPS,URINE FEW /HPF (NEGATIVE)
[2025-02-14] MEDS: sulfamethoxazole/trimethoprim DS (800/160mg) tablet PO ONE (12:42)
[2025-02-14] MEDS ORDERED: diazepam inj 5 MG/ML inj. IM ONE (15:45)
[2025-02-14] MEDS ORDERED: haloperidol lactate 5mg/ml inj IM ONE (15:45)
[2025-02-14] MEDS: diazepam inj 5 MG/ML inj. IM ONE ×2 (16:15→17:19)
[2025-02-14] MEDS: haloperidol lactate 5mg/ml inj IM ONE ×2 (16:16→17:20)
[2025-02-14] MEDS: ziprasidone IM 20mg inj **IM only IM ONE (17:18)
[2025-02-15 09:36] VITALS: BP 98/72; PULSE 68; TEMP 97.3; O2SAT 99
[2025-02-15] MEDS: FOSFOMYCIN TROMETHAMINE 3 GM PACKET PO ONE (09:45)
[2025-02-15 10:22] VITALS: RESP 18
== END 2025-02-15 10:00 | disposition home or self-care (01) ==
LOC: ER 10:35
DX: F99 Mental disorder, not otherwise specified (principal); F41.9 Anxiety disorder, unspecified; N39.0 Urinary tract infection, site not specified; R45.1 Restlessness and agitation; F12.90 Cannabis use, unspecified, uncomplicated; F31.9 Bipolar disorder, unspecified; Z88.0 Allergy status to penicillin; Z88.8 Allergy status to other drugs, medicaments and biological substances; Z20.822 Contact with and (suspected) exposure to COVID-19
CPT/HCPCS: 36415; 80048; 80305; 81001; 81025; 84443; 85025; 87811; 96372; 99285; G0480; J1200; J1630; J3360; J3486; J7030; 80320